=== PATIENT | male | born 1985 | race African-American/Black ===

== ENCOUNTER 2016-03-25 18:57 | Emergency (ER) | payer OTHER ==
[~2016-03-25 18:57] MED LIST: ACETAMINOPHEN-1 EAC1 PO; ACETAMINOPHEN650 M5 PO; ALBUTEROL NEB; AVELOX 400 MG400 MG; AZITHROMYCIN 2250 MG PO; CYCLOBENZAPRINE PO; FLEXERIL PO; FLONASE 0.05%50 MCG NASAL; FOLIC ACID1 MG; HYDREA 500 MG500 M1 PO; HYDROCODON-ACE1 EA10; HYDROCODON-ACE1 EA12 PO; HYDROCODON-ACE1 EACH PO; IBUPROFEN 600600 M1 PO; NAPROSYN500 MG PO; NOHOMEMEDICATIONS; NORCO 5-325 TA1 EACH PO; NORCO 7.5-3251 EACH; OXYCODONE-ACET1 EACH PO; PERCOCET 5-3251 EACH PO; TRAMADOL 50 MG50 MG PO; VICODIN 5-5001 EACH PO
[2016-03-25 19:35] LABS: HEMATOCRIT 20.8 % (42.0-52.0); HEMOGLOBIN 7.6 gm/dL (14.0-18.0); MCH 38.2 pg (26.0-34.0); MCHC 36.6 % (28.0-37.0); MCV 104.5 fL (80.0-100.0); RBC 1.99 mil/uL (4.50-6.00); RDW 28.8 % (10.5-14.5)
[2016-03-25] MEDS ORDERED: NAPROSYN500 MG PO (20:29)
[2016-03-25 20:39] VITALS: BP 113/68
[2016-04-15] MEDS ORDERED: NORCO 5-325 TA1 EACH PO (22:59)
== END 2016-03-25 21:02 | disposition home or self-care (01) ==
LOC: ER 18:57
PROVIDERS: Emergency Medicine
DX: D57.00 Hb-SS disease with crisis, unspecified (principal); Z90.49 Acquired absence of other specified parts of digestive tract; Z88.5 Allergy status to narcotic agent; F17.210 Nicotine dependence, cigarettes, uncomplicated

== ENCOUNTER 2016-05-28 19:48 | Emergency (ER) | payer OTHER ==
[~2016-05-28] VITALS: Ht 170.2 cm; Wt 63.5 kg
[2016-05-28 21:43] LABS: HEMATOCRIT 20.3 % (42.0-52.0); MCH 39.2 pg (26.0-34.0); MCHC 39.1 g/dL (28.0-37.0); MCV 100.2 fL (80.0-100.0); PLATELET COUNT 609 thou/uL (150-400); RBC 2.03 mil/uL (4.50-6.00); RDW 26.8 % (10.5-14.5); WBC 17.3 thou/uL (4.0-11.0)
[2016-05-28 21:49] LABS: CALCIUM 8.3 mg/dL (8.5-10.1); CREATININE 0.7 mg/dL (0.6-1.3); POTASSIUM 4.3 mmol/L (3.5-5.1)
[2016-05-28 21:51] LABS: MANUAL DIFF YES
[2016-05-28 22:08] LABS: NUCLEATED RBCS 6 /100WBC; TOTAL CELL COUNT 100
[2016-05-28 22:10] LABS: ANISOCYTOSIS 2+; POIKILOCYTOSIS 3+
[2016-05-28 22:11] LABS: MACROCYTES 1+; POLYCHROMASIA 1+; TARGET CELLS FEW
[2016-05-28] MEDS ORDERED: ZPAK PO (22:19)
[2016-05-28] MEDS ORDERED: PERCOCET 5-3251 EACH PO (22:30)
[2016-05-28 22:48] VITALS: BP 107/47
== END 2016-05-28 22:48 | disposition home or self-care (01) ==
LOC: ER 19:48
PROVIDERS: Emergency Medicine
DX: J06.9 Acute upper respiratory infection, unspecified (principal); D57.1 Sickle-cell disease without crisis; N48.30 Priapism, unspecified; I63.9 Cerebral infarction, unspecified; F32.9 Major depressive disorder, single episode, unspecified; F17.210 Nicotine dependence, cigarettes, uncomplicated; F98.8 Other specified behavioral and emotional disorders with onset usually occurring in childhood and adolescence; Z90.89 Acquired absence of other organs; Z90.49 Acquired absence of other specified parts of digestive tract; Z88.5 Allergy status to narcotic agent

== ENCOUNTER 2016-06-15 07:02 | Emergency (ER) | payer OTHER ==
[~2016-06-15] VITALS: Ht 170.2 cm; Wt 62.6 kg
[~2016-06-15 07:02] MED LIST changes: +ZPAK PO
[2016-06-15 07:52] LABS: HEMATOCRIT 21.3 % (42.0-52.0); HEMOGLOBIN 8.1 gm/dL (14.0-18.0); MCH 39.5 pg (26.0-34.0); MCHC 37.8 g/dL (28.0-37.0); MCV 104.4 fL (80.0-100.0); PLATELET COUNT 518 thou/uL (150-400); RBC 2.04 mil/uL (4.50-6.00); RDW 29.4 % (10.5-14.5); WBC 17.4 thou/uL (4.0-11.0)
[2016-06-15 07:56] LABS: MANUAL DIFF YES
[2016-06-15 08:00] LABS: CALCIUM 8.4 mg/dL (8.5-10.1); CREATININE 0.6 mg/dL (0.6-1.3)
[2016-06-15 08:35] LABS: NUCLEATED RBCS 6 /100WBC; PLATELET ESTIMATE INCREASED; TOTAL CELL COUNT 100
[2016-06-15 08:36] LABS: ANISOCYTOSIS 2+; MACROCYTES 1+; POLYCHROMASIA 2+
[2016-06-15 10:28] VITALS: BP 101/59
== END 2016-06-15 11:45 | disposition home or self-care (01) ==
LOC: ER 07:02
PROVIDERS: Emergency Medicine
DX: D57.00 Hb-SS disease with crisis, unspecified (principal); F32.9 Major depressive disorder, single episode, unspecified; Z90.49 Acquired absence of other specified parts of digestive tract; Z98.890 Other specified postprocedural states; Z86.73 Personal history of transient ischemic attack (TIA), and cerebral infarction without residual deficits; Q89.2 Congenital malformations of other endocrine glands; Z86.718 Personal history of other venous thrombosis and embolism; Z88.5 Allergy status to narcotic agent; F17.210 Nicotine dependence, cigarettes, uncomplicated

== ENCOUNTER 2016-11-28 08:26 | Emergency (ER) | payer OTHER ==
[~2016-11-28] VITALS: Ht 170.2 cm; Wt 59.9 kg
[2016-11-28 08:26] VITALS: BP 126/92
[2016-11-28] MEDS ORDERED: NORCO 5-325 TA1 EACH PO (08:48)
[2016-11-28] MEDS ORDERED: KEFLEX500 MG PO (08:48)
== END 2016-11-28 09:18 | disposition home or self-care (01) ==
LOC: ER 08:26
DX: S91.302A Unspecified open wound, left foot, initial encounter (principal); D57.1 Sickle-cell disease without crisis; F32.9 Major depressive disorder, single episode, unspecified; F90.9 Attention-deficit hyperactivity disorder, unspecified type; N48.30 Priapism, unspecified; F17.210 Nicotine dependence, cigarettes, uncomplicated; Z90.89 Acquired absence of other organs; Z90.49 Acquired absence of other specified parts of digestive tract; Z86.73 Personal history of transient ischemic attack (TIA), and cerebral infarction without residual deficits; Z86.718 Personal history of other venous thrombosis and embolism; Z88.5 Allergy status to narcotic agent; W22.8XXA Striking against or struck by other objects, initial encounter; Y93.89 Activity, other specified; Y92.89 Other specified places as the place of occurrence of the external cause; Y99.8 Other external cause status

== ENCOUNTER 2017-07-09 06:39 | Emergency (ER) | payer OTHER ==
[~2017-07-09] VITALS: Ht 170.2 cm; Wt 62.6 kg
[~2017-07-09 06:39] MED LIST changes: +KEFLEX500 MG PO
[2017-07-09] MEDS ORDERED: IRON325 PO (06:47)
[2017-07-09 07:27] LABS: HEMOGLOBIN 7.5 gm/dL (14.0-18.0); MCH 39.8 pg (26.0-34.0); MCHC 37.7 g/dL (28.0-37.0); MCV 105.4 fL (80.0-100.0); PLATELET COUNT 490 thou/uL (150-400); RDW 28.1 % (10.5-14.5)
[2017-07-09 07:39] LABS: CALCIUM 8.7 mg/dL (8.5-10.1); CREATININE 0.7 mg/dL (0.7-1.3); POTASSIUM 4.5 mmol/L (3.5-5.1)
[2017-07-09 07:48] LABS: NUCLEATED RBCS 5 /100WBC
[2017-07-09 07:49] LABS: ANISOCYTOSIS 3+; MACROCYTES 1+; POLYCHROMASIA 1+
[2017-07-09 07:54] LABS: HOWELL-JOLLY BODIES RARE
[2017-07-09 09:23] VITALS: BP 119/69
== END 2017-07-09 09:26 | disposition home or self-care (01) ==
LOC: ER 06:39
PROVIDERS: Emergency Medicine
DX: D57.1 Sickle-cell disease without crisis (principal); M54.9 Dorsalgia, unspecified; Z87.01 Personal history of pneumonia (recurrent); F32.9 Major depressive disorder, single episode, unspecified

== ENCOUNTER 2018-01-11 06:36 | Emergency (ER) | payer OTHER ==
[~2018-01-11] VITALS: Ht 172.7 cm; Wt 77.1 kg
--- NOTE | ~2018-01-11 | EKG ---
[place] [address] [facility] [place] [address] ELECTROCARDIOGRAM REPORT Name: SADIE SANTAMARIAN [id number] Admission: 01/11/18 Attend Phys: Discharge: 01/11/18 Date of : 81 Report #: [id number] THIS REPORT FOR: //name// 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 : 1985 Requested By: Sukhdev Palm Order Number: [id number] MD: Reuben Ybarra Measurements Intervals [place] Rate: 80 P: 78 UT: 156 QRS: 65 QRSD: 93 T: 174 QT: 395 QTc: 456 Interpretive Statements Sinus rhythm Abnrm T, consider ischemia, lateral lds Compared to ECG 07/27/2010 06:21:17 Lateral T wave inversion is now present Sinus tachycardia no longer present Electronically Signed On 01-12-2018 8:45:24 CDT by Reuben Ybarra [email or web address] <ELECTRONICALLY SIGNED> By: Reuben bYarra MD, [facility] 01/12/18 0845 6 6 Reuben Ybarra MD, [facility] /EPI
[~2018-01-11 06:36] MED LIST changes: +BACTROBAN CREAM30 G1 TOP; +IRON325 PO
[2018-01-11 07:30] LABS: ABSOLUTE RETIC COUNT 0.3335 10^6/uL; HEMATOCRIT 21.5 % (42.0-52.0); HEMOGLOBIN 8.2 gm/dL (14.0-18.0); MCH 41.3 pg (26.0-34.0); MCV 108.7 fL (80.0-100.0); OBSERVED RETIC COUNT 16.89 % (0.6-2.6); PLATELET COUNT 409 thou/uL (150-400); RBC 1.97 mil/uL (4.50-6.00); RDW 24.8 % (10.5-14.5); WBC 16.2 thou/uL (4.0-11.0)
[2018-01-11 07:44] LABS: CALCIUM 8.9 mg/dL (8.5-10.1); CREATININE 0.7 mg/dL (0.7-1.3); POTASSIUM 5.4 mmol/L (3.5-5.1)
[2018-01-11 07:48] LABS: ALBUMIN 3.9 g/dL (3.4-5.0); TOTAL BILIRUBIN 14.2 mg/dL (<0.1-1.0)
[2018-01-11 08:02] LABS: ABSOLUTE NEUTROPHILS 11.8 thou/uL (1.4-8.2); ANISOCYTOSIS 3+; MACROCYTES 2+; METAMYELOCYTES 2 %; NUCLEATED RBCS 5 /100WBC; POLYCHROMASIA 1+
[2018-01-11 08:21] LABS: TOTAL PROTEIN 7.3 g/dL (6.4-8.2)
[2018-01-11 10:34] VITALS: BP 108/46
== END 2018-01-11 10:40 | disposition home or self-care (01) ==
LOC: ER 06:36
PROVIDERS: Emergency Medicine
DX: D57.00 Hb-SS disease with crisis, unspecified (principal); G81.91 Hemiplegia, unspecified affecting right dominant side; F17.210 Nicotine dependence, cigarettes, uncomplicated; Z86.718 Personal history of other venous thrombosis and embolism; Z86.711 Personal history of pulmonary embolism; Z87.01 Personal history of pneumonia (recurrent); F32.9 Major depressive disorder, single episode, unspecified; Z90.49 Acquired absence of other specified parts of digestive tract; Z88.5 Allergy status to narcotic agent

== ENCOUNTER 2018-03-09 20:49 | Emergency (ER) | payer OTHER ==
[~2018-03-09] VITALS: Ht 170.2 cm; Wt 62.1 kg
[2018-03-09 21:16] LABS: ANION GAP 12 mmol/L (7-16); BUN 21 mg/dL (7-18); CALCIUM 8.9 mg/dL (8.5-10.1); CHLORIDE 108 mmol/L (98-107); CO2 24 mmol/L (21-32); CREATININE 1.1 mg/dL (0.7-1.3); GLUCOSE 155 mg/dL (74-106); POTASSIUM 4.7 mmol/L (3.5-5.1); SODIUM 144 mmol/L (136-145)
[2018-03-09 21:22] LABS: ABSOLUTE RETIC COUNT 0.3726 10^6/uL; HEMATOCRIT 21.7 % (42.0-52.0); HEMOGLOBIN 8.1 gm/dL (14.0-18.0); MCH 38.1 pg (26.0-34.0); MCHC 37.4 g/dL (28.0-37.0); MCV 101.9 fL (80.0-100.0); OBSERVED RETIC COUNT 17.52 % (0.6-2.6); PLATELET COUNT 546 thou/uL (150-400); RBC 2.13 mil/uL (4.50-6.00); RDW 24.8 % (10.5-14.5); WBC 34.1 thou/uL (4.0-11.0)
[2018-03-09 21:25] LABS: LIPASE 118 U/L (73-393); TROPONIN-I <0.06 ng/mL (<0.06)
[2018-03-09 21:29] LABS: URINE CLARITY CLEAR; URINE COLOR AMBER; URINE GLUCOSE-RANDOM* NEGATIVE (Negative); URINE PROTEIN (DIPSTICK) 3+ (Negative); URINE SPECIFIC GRAVITY 1.025 (1.005-1.035)
[2018-03-09 21:30] LABS: ICTOTEST (BILI CONFIRMATORY) Negative (Negative); URINE BILIRUBIN NEGATIVE (Negative); URINE BLOOD 3+ (Negative); URINE KETONES NEGATIVE (Negative); URINE LEUKOCYTES-REFLEX NEGATIVE (Negative); URINE NITRITE-REFLEX NEGATIVE (Negative); URINE UROBILINOGEN 0.2 E.U./dl (0.2-1.0)
[2018-03-09 21:35] LABS: ALBUMIN 4.3 g/dL (3.4-5.0); DIRECT BILIRUBIN 0.7 mg/dL (<0.1-0.3); TOTAL BILIRUBIN 13.2 mg/dL (<0.1-1.0); TOTAL PROTEIN 7.4 g/dL (6.4-8.2)
[2018-03-09 21:37] LABS: BACTERIA-REFLEX 1-9 Few /HPF (None Seen); CASTS None Seen /LPF (None Seen); CRYSTALS None Seen /LPF (None Seen); SQUAMOUS 0-3 Few /LPF (0-3); URINE RBC 0-2 Rare /HPF (0-2); URINE WBC-REFLEX None Seen /HPF (0-5)
[2018-03-09 22:08] LABS: NUCLEATED RBCS 1 /100WBC
[2018-03-09 22:10] LABS: ANISOCYTOSIS 2+; MACROCYTES 1+; POLYCHROMASIA 2+
[2018-03-09 22:11] LABS: TARGET CELLS OCCASIONAL
[2018-03-09 23:06] VITALS: BP 130/55
--- NOTE | 2018-03-11 15:06 | EKG ---
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: JUANITA : 1985 Requested By: Cecile Gunn Order Number: [id number] MD: Forest Alejandre Measurements Intervals [place] Rate: 132 P: 83 HI: 137 QRS: 89 QRSD: 83 T: -47 QT: 299 QTc: 443 Interpretive Statements Sinus tachycardia Nonspecific T abnormalities, diffuse leads Baseline wander in lead(s) V6 Compared to ECG 01/11/2018 08:27:15 T-wave abnormality now present Sinus rhythm no longer present Electronically Signed On 03-11-2018 15:05:54 POWERHOUSE MECHANIC by Forest Alejandre [email or web address] <ELECTRONICALLY SIGNED> By: Forest Alejandre MD 03/11/18 1505 05 05 Forest Alejandre MD /EPI
== END 2018-03-09 23:06 | disposition short-term general hospital (02) ==
LOC: ER 20:49
PROVIDERS: Student in an Organized Health Care Education/Training Program
DX: D57.811 Other sickle-cell disorders with acute chest syndrome (principal); F32.9 Major depressive disorder, single episode, unspecified; Z90.49 Acquired absence of other specified parts of digestive tract; Z87.01 Personal history of pneumonia (recurrent); Z86.718 Personal history of other venous thrombosis and embolism; Z88.5 Allergy status to narcotic agent; R11.2 Nausea with vomiting, unspecified

== ENCOUNTER 2018-12-29 18:49 | Emergency (ER) | payer OTHER ==
[~2018-12-29] VITALS: Ht 170.2 cm; Wt 61.2 kg
[2018-12-29] MEDS ORDERED: CLINDAMYCIN HC300 MG PO (19:52)
[2018-12-29 20:06] VITALS: BP 118/71
== END 2018-12-29 20:07 | disposition home or self-care (01) ==
LOC: ER 18:49
DX: S90.512A Abrasion, left ankle, initial encounter (principal); F90.9 Attention-deficit hyperactivity disorder, unspecified type; F17.210 Nicotine dependence, cigarettes, uncomplicated; Z90.89 Acquired absence of other organs; Z90.49 Acquired absence of other specified parts of digestive tract; Z86.73 Personal history of transient ischemic attack (TIA), and cerebral infarction without residual deficits; Z86.2 Personal history of diseases of the blood and blood-forming organs and certain disorders involving the immune mechanism; Z88.5 Allergy status to narcotic agent; W54.0XXA Bitten by dog, initial encounter; Y93.01 Activity, walking, marching and hiking; Y92.89 Other specified places as the place of occurrence of the external cause; Y99.8 Other external cause status

== ENCOUNTER 2019-12-01 00:28 | Emergency (ER) | payer OTHER ==
[~2019-12-01] VITALS: Ht 170.2 cm; Wt 61.2 kg
[~2019-12-01 00:28] MED LIST changes: +CLINDAMYCIN HC300 MG PO
[2019-12-01 00:53] LABS: HEMATOCRIT 21.1 % (42.0-52.0); HEMOGLOBIN 7.9 gm/dL (14.0-18.0); MCH 39.1 pg (26.0-34.0); MCHC 37.3 g/dL (28.0-37.0); MCV 104.7 fL (80.0-100.0); PLATELET COUNT 623 thou/uL (150-400); RBC 2.02 mil/uL (4.50-6.00); RDW 27.7 % (10.5-14.5); WBC 15.8 thou/uL (4.0-11.0)
[2019-12-01 00:58] LABS: ABSOLUTE RETIC COUNT 0.43 10^6/uL; OBSERVED RETIC COUNT 21.31 % (0.6-2.6)
[2019-12-01 01:07] LABS: CALCIUM 8.4 mg/dL (8.5-10.1); CREATININE 0.9 mg/dL (0.7-1.3); POTASSIUM 4.2 mmol/L (3.5-5.1)
[2019-12-01 01:26] LABS: ALBUMIN 4.3 g/dL (3.4-5.0); TOTAL BILIRUBIN 19.6 mg/dL (0.2-1.0); TOTAL PROTEIN 6.9 g/dL (6.4-8.2)
[2019-12-01 01:51] LABS: ABSOLUTE NEUTROPHILS 8.3 thou/uL (1.4-8.2); CORRECTED WBC 13.6 thou/uL (4.0-11.0); NUCLEATED RBCS 16 /100WBC
[2019-12-01 01:54] LABS: ANISOCYTOSIS 3+; LARGE PLATELETS SEVERAL; MACROCYTES 1+; PLATELET ESTIMATE INCREASED; POIKILOCYTOSIS 2+; POLYCHROMASIA 2+; SCHISTOCYTES 1+; TARGET CELLS 1+
[2019-12-01] MEDS ORDERED: ROXICODONE5 M2 PO (02:26)
[2019-12-01 02:31] VITALS: BP 107/58
--- NOTE | 2019-12-01 07:37 | EKG ---
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: [place] [id number] : 1985 Requested By: Sukhdev Palm Order Number: [id number] MD: Desean Knott Measurements Intervals [place] Rate: 87 P: 72 ID: 175 QRS: 72 QRSD: 87 T: 29 QT: 341 QTc: 411 Interpretive Statements Sinus rhythm RSR' in V1 or V2, right VCD or RVH Compared to ECG 03/09/2018 21:06:46 Sinus tachycardia no longer present T-wave abnormality no longer present Electronically Signed On 12-01-2019 7:37:21 CDT by Desean Knott [email or web address] <ELECTRONICALLY SIGNED> By: Desean Knott MD, FAC 12/01/19 0737 0037 0037 Desean Knott MD, FAC /EPI
== END 2019-12-01 02:55 | disposition home or self-care (01) ==
LOC: ER 00:28
PROVIDERS: Emergency Medicine
DX: D57.80 Other sickle-cell disorders without crisis (principal); F17.210 Nicotine dependence, cigarettes, uncomplicated; Z90.89 Acquired absence of other organs; Z90.49 Acquired absence of other specified parts of digestive tract; Z88.1 Allergy status to other antibiotic agents; Z88.5 Allergy status to narcotic agent

== ENCOUNTER 2020-01-07 02:21 | Emergency (ER) | payer OTHER ==
[~2020-01-07] VITALS: Ht 167.6 cm; Wt 61.2 kg
--- NOTE | ~2020-01-07 | EMS ---
[address] [address] EMS Patient Care Report Name: SADIE SANTAMARIA Room #: REG DUSTY Catherine#: [id number] Admission: 01/07/20 Attend Phys: Discharge: Date of : 81 Report #: [id number] THIS REPORT FOR: //name// Report Transmitted: 01/07/2020 09:02 EMS Care Summary [place], [place]/[facility] Incident [id number] @ 01/07/2020 01:53 Incident Location [address] [place] [address] Patient SADIE SANTAMARIA Male, 34 Years 1985 Patient Address [address] [place], [place] [id number] Patient History Depression,Sickle Cell Disease, Patient Allergies Morphine, Patient Medications None Reported, Chief Complaint SI WITH A PLAN Disposition Transported No Lights/[place] Reason Psychiatric Problem/Abnormal Behavior/Suicide Attempt Transported To [facility] Narrative PT STATES THAT PT WANTED TO HARM HIMSELF BY DRINKING BY BLEACH. PT STATES THAT PT WANTS TO GET SOME HELP AT THE HOSPITAL. PT STATES THAT PT WANTS TO GET HELP WITH EMS BECAUSE IF PT WENT BY POLICE PT WOULD HAVE TO WEAR HANDCUFFS. PT STATES THAST PT IS ALWAYS IN PAIN BECAUSE OF SICKLE CELL. PT STATES THAT PT IS [address] [address] EMS Patient Care Report Name: SADIE SANTAMARIA Room #: REG Florin#: [id number] Admission: 01/07/20 Attend Phys: Discharge: Date of : 81 Report #: [id number] ALWAYS ON O2 THROUGH THE NIGHT. PT HAS NO OTHER COMPLAINTS. PT WASA FOUND WALKING TO THE AMBULANCE. PT SPOKE IN FULL AND COMPLETE SENTENCES. PT IS KRISSY TO STAND AND PIVOT TO GET ONTO EMS COT. PT HAS NO OTHER OBVIOUS ABNORMALITIES. Initial Vitals @02:03P: 119,CO: 39,SpO2: 80, @02:12P: 115,BP: 120/76,SpO2: 94, @02:02P: 110,R: 18,BP: 149/68,Pain: 7/10,GCS: 15,SpO2: 88,Revised Trauma: 12, Assessments @02:36MENTAL:Person Oriented,Time Oriented,Place Oriented,Event Oriented,SKIN:HEENT:Eyes: Right Pupil: 4-mm,Eyes: Left Pupil: 4-mm,Head/Face: No Abnormalities,Neck/Airway: No Abnormalities,LUNG SOUNDS:General: No Abnormalities,ABDOMEN:General: No Abnormalities,PELVIS//GI:EXTREMITIES:Capillary Refill: Right Upper: < 2 Sec,Left Arm: No Abnormalities,Right Arm: No Abnormalities,Left Leg: No Abnormalities,Right Leg: No Abnormalities,PULSE:Radial: 2+ Normal,NEURO: Impression Behavioral/psychiatric episode Procedures @02:02ALS AssessmentSucceeded@02:10Oxygen FlowRate: 2 Device: Nasal Cannula (NC) Response: UnchangedSucceeded Timeline 01:53,Call Received 01:53,Dispatch Notified 01:53,Dispatched 01:54,En Route 01:58,On Scene 01:59,At Patient 02:02,BP: 149/68 M,PULSE: 110,RR: 18 R,SPO2: 88 Ox,ETCO2: ,BG: ,PAIN: 7,GCS: 15, 02:02,ALS Assessment,Succeeded, 02:03,BP: / M,PULSE: 119,RR: R,SPO2: 80 Ox,ETCO2: ,BG: ,PAIN: ,GCS: , 02:04,Depart Scene 02:10,Oxygen FlowRate: 2 Device: Nasal Cannula (NC) Response: UnchangedSucceeded, 02:12,BP: 120/76 M,PULSE: 115,RR: R,SPO2: 94 Ox,ETCO2: ,BG: ,PAIN: ,GCS: , 02:16,At Destination 02:40,Call Closed Disclaimer [address] [address] EMS Patient Care Report Name: SADIE SANTAMARIA Room #: [facility] [id number] Admission: 01/07/20 Attend Phys: Discharge: Date of : 81 Report #: [id number] v1.1 Copyright 2020 [employer] This EMS Care Summary contains data elements from the applicable legal record (which may be displayed differently). It is designed to provide pertinent information for the following purposes: continuity of care, clinical quality, and state data reporting. The complete legal record is available to ED staff and administrators of the receiving hospital in [facility]'s Patient Tracker. All data is provided "as is."
[~2020-01-07 02:21] MED LIST changes: +ROXICODONE5 M2 PO
[2020-01-07] MEDS ORDERED: FLEXERIL (02:39)
[2020-01-07 03:13] LABS: AMP/METHAMP Negative (Negative); BARBITURATES Negative (Negative); BENZODIAZEPINES Negative (Negative); COCAINE Negative (Negative); METHADONE Negative (Negative); OPIATES Negative (Negative); PCP Negative (Negative)
[2020-01-07 03:39] LABS: HEMOGLOBIN 8.1 gm/dL (14.0-18.0)
[2020-01-07 03:41] LABS: MCH 39.7 pg (26.0-34.0); MCHC 38.6 g/dL (28.0-37.0); MCV 103.1 fL (80.0-100.0); PLATELET COUNT 566 thou/uL (150-400); RBC 2.04 mil/uL (4.50-6.00); RDW 25.5 % (10.5-14.5); WBC 18.1 thou/uL (4.0-11.0)
[2020-01-07 03:47] LABS: CALCIUM 8.5 mg/dL (8.5-10.1); CREATININE 1.2 mg/dL (0.7-1.3); POTASSIUM 4.4 mmol/L (3.5-5.1)
[2020-01-07 03:53] LABS: ALBUMIN 4.2 g/dL (3.4-5.0); TOTAL PROTEIN 6.6 g/dL (6.4-8.2)
[2020-01-07 06:53] LABS: SALICYLATE < 2.8 mg/dL (2.8-20.0)
[2020-01-07 07:48] LABS: ABSOLUTE NEUTROPHILS 10.9 thou/uL (1.4-8.2); NUCLEATED RBCS 8 /100WBC
[2020-01-07 07:49] LABS: ANISOCYTOSIS 3+; MACROCYTES 1+
[2020-01-07 07:50] LABS: POLYCHROMASIA SLIGHT
[2020-01-07 07:55] LABS: METAMYELOCYTES 1 %; MYELOCYTES 1 %
[2020-01-07 07:57] LABS: MICROCYTES 1+
--- NOTE | 2020-01-07 11:19 | EKG ---
[facility] [place] [address] ELECTROCARDIOGRAM REPORT Name: SADIE SANTAMARIA [facility] [id number] Admission: 01/07/20 Attend Phys: Discharge: Date of : 81 Report #: [id number] THIS REPORT FOR: cc: NO FAMILY PHYSICIAN or PCP NO FAMILY PHYSICIAN or PCP Forest Alejandre MD ~ THIS REPORT FOR: //name// [facility] ED Test Date: 2020-01-07 Test Time: 03:00:18 Pat Name: SADIE SANTAMARIA Department: Room: Gender: Benzene Operator: [facility] : 1985 Requested By: Agustín Mckeon Order Number: [id number] MD: Forest Alejandre Measurements Intervals [place] Rate: 93 P: 68 [place]: 165 QRS: 70 QRSD: 86 T: 6 QT: 358 QTc: 446 Interpretive Statements Sinus rhythm RSR' in V1 or V2, right VCD or RVH Borderline T abnormalities, lateral leads Baseline wander in lead(s) V1 Compared to ECG 12/01/2019 00:37:52 T-wave abnormality now present Electronically Signed On 01-07-2020 11:19:23 CDT by Forest Alejandre [email or web address] <ELECTRONICALLY SIGNED> By: Forest Alejandre MD 01/07/20 1119 9 9 Forest Alejandre MD /EPI
[2020-01-07 20:09] VITALS: BP 95/50
== END 2020-01-07 23:40 ==
LOC: ER 02:21
PROVIDERS: Emergency Medicine
DX: R45.851 Suicidal ideations (principal); F32.9 Major depressive disorder, single episode, unspecified; F17.210 Nicotine dependence, cigarettes, uncomplicated; Z90.49 Acquired absence of other specified parts of digestive tract; Z90.89 Acquired absence of other organs; Z79.899 Other long term (current) drug therapy; Z88.1 Allergy status to other antibiotic agents; Z88.5 Allergy status to narcotic agent; Z20.828 Contact with and (suspected) exposure to other viral communicable diseases

== ENCOUNTER 2020-02-27 00:03 | Emergency (ER) | payer OTHER ==
[~2020-02-27] VITALS: Ht 170.2 cm; Wt 60.8 kg
[~2020-02-27 00:03] MED LIST changes: +FLEXERIL
[2020-02-27 00:06] VITALS: BP 123/59
[2020-02-27] MEDS ORDERED: TRAZODONE HCL50 MG PO (00:11)
[2020-02-27] MEDS ORDERED: LEXAPRO 10 MG T10 M1 PO (00:11)
[2020-02-27] MEDS ORDERED: PERCOCET PO (01:20)
== END 2020-02-27 01:55 | disposition home or self-care (01) ==
LOC: ER 00:03
DX: L97.329 Non-pressure chronic ulcer of left ankle with unspecified severity (principal); Z90.49 Acquired absence of other specified parts of digestive tract; Z90.89 Acquired absence of other organs; Z79.899 Other long term (current) drug therapy; F17.210 Nicotine dependence, cigarettes, uncomplicated; Z88.5 Allergy status to narcotic agent; Z88.1 Allergy status to other antibiotic agents